=== PATIENT | male | born 1970 | race Caucasian/White ===

== ENCOUNTER 2017-04-20 15:43 | Emergency (ER) | payer OTHER ==
[~2017-04-20] VITALS: Ht 177.8 cm; Wt 90.9 kg
[~2017-04-20 15:43] MED LIST: PRILOSEC 20MG20 MG PO
[2017-04-20 15:47] VITALS: BP 149/83; PULSE 86; TEMP 98.2
[2017-04-20] MEDS ORDERED: PERCOCET 325 MG1 TA2 PO (17:31)
== END 2017-04-20 17:38 | disposition home or self-care (01) ==
LOC: COL.ER 15:43
DX: M79.644 Pain in right finger(s) (principal)

== ENCOUNTER → 2018-06-16 | Outpatient (CLI) | payer OTHER ==
[~2018-06-16] MED LIST changes: +PERCOCET 325 MG1 TA2 PO
== END ==
LOC: COL.RAD 10:06
DX: Z02.71 Encounter for disability determination (principal); M47.816 Spondylosis without myelopathy or radiculopathy, lumbar region